=== PATIENT | female | born 1965 | race Caucasian/White ===

== ENCOUNTER → 2021-11-11 07:18 | Outpatient (CLI) | payer OTHER | END | disposition home or self-care (01) | LOC: NUCLEAR 07:00 | PROVIDERS: ATTEND Internal Medicine Hematology & Oncology | DX: C83.33 Diffuse large B-cell lymphoma, intra-abdominal lymph nodes (principal) | CPT/HCPCS: 78816; A9552 ==

== ENCOUNTER 2022-10-09 07:52 | Outpatient (CLI) | payer OTHER | END 2022-10-09 08:00 | disposition home or self-care (01) | LOC: NUCLEAR 07:52 | PROVIDERS: ATTEND Internal Medicine Hematology & Oncology | DX: C83.33 Diffuse large B-cell lymphoma, intra-abdominal lymph nodes (principal) ==

== ENCOUNTER → 2023-11-01 | Outpatient (CLI) | payer OTHER | END | disposition home or self-care (01) | LOC: NUCLEAR 07:18 | PROVIDERS: ATTEND Internal Medicine Hematology & Oncology | DX: C83.33 Diffuse large B-cell lymphoma, intra-abdominal lymph nodes (principal) ==